=== PATIENT | male | born 1945 | race Caucasian/White ===

== ENCOUNTER 2016-11-25 09:24 | Inpatient (IN) | payer OTHER ==
[~2016-11-25] VITALS: Ht 175.3 cm; Wt 98.2 kg
[2016-11-25] VITALS (9 sets, daily range): BP systolic 103–121; BP diastolic 40–69
[~2016-11-25 09:24] MED LIST: ALPRAZOLAM0.25 M2 PO; AMLODIPINE BESYL5 MG PO; APRESOLINE25 MG PO; ASPIR 8181 M1 PO; ATENOLOL100 MG PO; Ascorbic Acid,Ester- PO; Aspirin E.C. PO; BENAZEPRIL-HCT1 EAC5 PO; CITRATE OF MAG296 ML PO; CLONIDINE HCL0.2 MG PO; COLCRYS0.6 MG PO; COUMADIN3 MG PO; COUMADIN5 MG PO; COUMADIN6 MG PO; Catapres-TTS 2 TD; Colace PO; Coumadin,Jantoven PO; DAILY VITAMIN1 EAC4 PO; DIGOXIN250 MCG; DIOVAN160 MG PO; DOCUSATE SODIU100 MG PO; DOXAZOSIN MESYLA4 MG PO; FERREX 150150 MG PO; FERROUS SULFAT325 MG PO; FUROSEMIDE40 MG PO; HYDRALAZINE HCL25 MG PO; HYDRALAZINE HCL50 MG PO; HYDROCODON-ACE1 EAC7 PO; K-DUR20 MEQ PO; LISINOPRIL-HCT1 EAC3 PO; LISINOPRIL-HCT1 EACH PO; LO-DOSE ASPIRIN81 M2 PO; LOTENSIN HCT1 TABLE1 PO; LOW DOSE ASPIRI81 M1 PO; Lanoxin,Digitek PO; Lasix PO; MEN'S MULTI-VI1 EACH PO; NITROSTAT0.3 MG SL; Niferex-150,Ferrex 1 PO; Norvasc PO; ONDANSETRON HCL4 MG PO; PANTOPRAZOLE SO40 MG PO; PERCOCET 5/31 TABLET PO; POTASSIUM CHLO20 ME2 PO; PRAVASTATIN SOD80 MG PO; PROAIR HFA8.5 GM IH; PROTONIX40 MG PO; Pravachol PO; Protonix PO; Proventil,Ventolin H IH; SPECTRAVITE SE1 EACH PO; STOOL SOFTENER100 MG PO; THERAGRAN1 TABLET PO; TRAMADOL HCL50 MG PO; TYLENOL EXTRA500 MG PO; Tenormin PO; Tylenol Regular Stre PO; VALSARTAN-HCTZ1 EAC3 PO; VENTOLIN HFA18 GM IH; VISINE ADVANCED15 ML BOTH EYES; VISINE TEARS DR30 ML BOTH EYES; VITAMIN C500 M1 PO; WARFARIN SODIUM1 MG PO; WARFARIN SODIUM6 MG PO; Xanax PO; ZOFRAN4 MG PO; oxyCODONE PO
[2016-11-25 09:46] LABS: CREATININE 1.4 mg/dL (0.6-1.3); POTASSIUM 3.7 mEq/L (3.7-5.4)
[2016-11-25 09:47] LABS: BASE EXCESS -2.2 mEq/L (-3 to +3); CARBOXY HGB 1.7 % (0-5); METHEMOGLOBIN 0.4 % (0-1.5)
[2016-11-25 09:48] LABS: BICARBONATE 30.1 mEq/L (22-26); DEVICE 840; FI02 100 %; MECHANICAL RATE 14 resp/min; MODE AC; PCO2 104 mm Hg (35-45); PEEP 5 CM/H20; PO2 98 mm Hg (80-100); SITE RR; TIDAL VOLUME 500 ML; pH 7.07 (7.35-7.45)
[2016-11-25 09:49] LABS: COMMENTS - BLOOD GASES CRITICAL
[2016-11-25 09:50] LABS: BASOPHIL COUNT 0.1 K/uL (0-0.1); EOSINOPHIL (%) 3.2 % (0-5); EOSINOPHIL COUNT 0.5 K/uL (0-0.3); IMMATURE GRANULOCYTE (%) 0.7 % (0.0-0.7); IMMATURE GRANULOCYTE COUNT 0.1 K/uL; INSTRUMENT ABS NEUTROPHIL CT 9.1 K/uL; LYMPHOCYTE COUNT 3.9 K/uL (1.0-2.8); MCH 25.3 PG (29.0-34.0); MCHC 28.8 G/DL (30.0-36.0); MCV 87.6 FL (86-99); MEAN PLAT.VOLUME 10.9 uM^3 (9.0-12.4); MONOCYTE (%) 7.5 % (3-12); MONOCYTE COUNT 1.1 K/uL (0-0.8); NEUTROPHIL (%) 61.8 % (45-76); NEUTROPHIL COUNT 9.1 K/uL (1.8-6.4); PLATELET COUNT 223 K/uL (156-360); RBC DIS.WIDTH-CV 17.5 % (11.8-14.6); RBC DIS.WIDTH-SD 56.2 % (39-53); RED BLOOD COUNT 4.91 M/uL (4.00-5.50); WHITE BLOOD COUNT 14.7 K/uL (4.1-10.2)
[2016-11-25 10:00] LABS: CHLORIDE 100 mEq/L (99-109); POTASSIUM 3.9 mEq/L (3.7-5.4); SODIUM 140 mEq/L (136-147)
[2016-11-25 10:03] LABS: GLUCOSE 286 mg/dL (70-99)
[2016-11-25 10:04] LABS: ANION GAP 20 MEQ/L (2-14); TOTAL BILIRUBIN 0.8 mg/dL (0.0-1.0)
[2016-11-25 10:06] LABS: ALKALINE PHOSPHATASE 98 IU/L (3-129); GFR ESTIMATE (CALCULATED) 45 mL/min/
[2016-11-25 10:07] LABS: UREA NITROGEN (BUN) 26 mg/dL (9-23)
[2016-11-25 10:11] LABS: TROP-I INTERPRETATION NEGATIVE; TROPONIN-I 0.05 ng/mL (0.0-0.30)
[2016-11-25 10:53] LABS: INTER. NORMALIZED RATIO 2.2; PROTHROMBIN TIME 23.4 (9.2-11.2)
[2016-11-25 11:25] LABS: BASE EXCESS 3.6 mEq/L (-3 to +3); BICARBONATE 33.1 mEq/L (22-26); CARBOXY HGB 1.9 % (0-5); METHEMOGLOBIN 0.6 % (0-1.5); PO2 80 mm Hg (80-100)
[2016-11-25 11:28] LABS: COMMENTS - BLOOD GASES CRITICAL; DEVICE 840; FI02 100 %; MECHANICAL RATE 20 resp/min; MODE AC; PCO2 79 mm Hg (35-45); SITE RR; TOTAL RESP RATE 20 resp/min; pH 7.23 (7.35-7.45)
[2016-11-25 11:29] LABS: PEEP 5 CM/H20; TIDAL VOLUME 500 ML
[2016-11-25] MEDS ORDERED: CLOPIDOGREL75 MG PO (12:10)
[2016-11-25] MEDS ORDERED: CARVEDILOL3.125 MG PO (12:10)
[2016-11-25 15:43] LABS: METH RESISTANT S AUREUS PCR NEGATIVE (NEGATIVE)
[2016-11-25 15:52] LABS: PROBE CHECK PASS; SPECIMEN PROCESSING CONTROL PASS
[2016-11-26] VITALS (22 sets, daily range): BP systolic 96–170; BP diastolic 36–90
[2016-11-26 03:14] LABS: BASE EXCESS 10.4 mEq/L (-3 to +3); BICARBONATE 34.3 mEq/L (22-26); CARBOXY HGB 1.6 % (0-5); COMMENTS - BLOOD GASES C+A+; DEVICE VENTILATOR; FI02 70 %; MECHANICAL RATE 20 resp/min; METHEMOGLOBIN 1.2 % (0-1.5); MODE AC; PCO2 42 mm Hg (35-45); PEEP 5 CM/H20; PO2 53 mm Hg (80-100); SITE RR; TIDAL VOLUME 500 ML; TOTAL RESP RATE 20 resp/min; pH 7.52 (7.35-7.45)
[2016-11-26 05:58] LABS: ALKALINE PHOSPHATASE 58 IU/L (3-129); ANION GAP 9 MEQ/L (2-14); CHLORIDE 101 MEQ/L (99-109); GFR ESTIMATE (CALCULATED) 49 mL/min/; SAMPLE HEMOLYSIS CHECK 0; SAMPLE ICTERIC CHECK 0; SAMPLE LIPEMIA CHECK 0; SODIUM 143 MEQ/L (136-147); TOTAL BILIRUBIN 1.1 MG/DL (0.0-1.0); UREA NITROGEN (BUN) 27 mg/dL (9-23)
[2016-11-26 05:59] LABS: GLUCOSE 119 mg/dL (70-99)
[2016-11-26 06:23] LABS: HEMATOCRIT 30.9 % (38.0-50.0); MCH 25.2 PG (29.0-34.0); MCHC 30.7 G/DL (30.0-36.0); RBC DIS.WIDTH-CV 17.8 % (11.8-14.6); RBC DIS.WIDTH-SD 54.1 % (39-53)
[2016-11-26 06:30] LABS: RED BLOOD COUNT 3.77 M/uL (4.00-5.50); WHITE BLOOD COUNT 9.9 K/uL (4.1-10.2)
[2016-11-26 06:51] LABS: MEAN PLAT.VOLUME 11.6 uM^3 (9.0-12.4); PLAT.SUFFICIENCY DECREASED
[2016-11-26 07:00] LABS: PLATELET COUNT 124 K/uL (156-360)
[2016-11-26 08:42] LABS: MAGNESIUM 1.8 mg/dl (1.3-2.7)
[2016-11-26 10:37] LABS: INTER. NORMALIZED RATIO 2.5; PROTHROMBIN TIME 26.3 (9.2-11.2)
[2016-11-27] VITALS (23 sets, daily range): BP systolic 136–169; BP diastolic 50–75
[2016-11-27 02:11] LABS: ADD MIUA? YES; BILIRUBIN NEGATIVE; BLOOD LARGE; COLOR YELLOW ((YELLOW)); GLUCOSE (STRIP) NEGATIVE; KETONES NEGATIVE; LEUKOCYTES NEGATIVE; NITRITE NEGATIVE; PROTEIN (STRIP) 100; SPECIFIC GRAVITY 1.011 (1.000-1.030); UROBILINOGEN 0.2 MG/DL (0.2-1.0)
[2016-11-27 02:22] LABS: BACTERIA NONE SEEN /HPF; EPITHELIAL CELLS RARE /HPF; MUCUS TRACE /LPF; RED BLOOD CELLS TNTC /HPF (0-5); UCUL ADDED? NO; WHITE BLOOD CELLS 0-5 /HPF (0-5)
[2016-11-27 06:23] LABS: EOSINOPHIL (%) 0.4 % (0-5); EOSINOPHIL COUNT 0.1 K/uL (0-0.3); HEMATOCRIT 33.7 % (38.0-50.0); IMMATURE GRANULOCYTE (%) 0.4 % (0.0-0.7); IMMATURE GRANULOCYTE COUNT 0.1 K/uL; INSTRUMENT ABS NEUTROPHIL CT 11.7 K/uL; LYMPHOCYTE COUNT 0.9 K/uL (1.0-2.8); MCH 25.3 PG (29.0-34.0); MCHC 30.6 G/DL (30.0-36.0); MCV 82.8 FL (86-99); MEAN PLAT.VOLUME 11.2 uM^3 (9.0-12.4); MONOCYTE (%) 8.4 % (3-12); MONOCYTE COUNT 1.2 K/uL (0-0.8); NEUTROPHIL (%) 84.5 % (45-76); NEUTROPHIL COUNT 11.7 K/uL (1.8-6.4); PLATELET COUNT 120 K/uL (156-360); RBC DIS.WIDTH-CV 18.1 % (11.8-14.6); RBC DIS.WIDTH-SD 54.4 % (39-53); RED BLOOD COUNT 4.07 M/uL (4.00-5.50); WHITE BLOOD COUNT 13.9 K/uL (4.1-10.2)
[2016-11-27 06:38] LABS: INTER. NORMALIZED RATIO 1.5; PROTHROMBIN TIME 15.9 (9.2-11.2)
[2016-11-27 06:40] LABS: ANION GAP 11 MEQ/L (2-14); CHLORIDE 101 MEQ/L (99-109); GFR ESTIMATE (CALCULATED) 49 mL/min/; POTASSIUM 3.4 MEQ/L (3.7-5.4); SAMPLE HEMOLYSIS CHECK 0; SAMPLE ICTERIC CHECK 0; SAMPLE LIPEMIA CHECK 0; SODIUM 144 MEQ/L (136-147); UREA NITROGEN (BUN) 24 mg/dL (9-23)
[2016-11-27 06:42] LABS: GLUCOSE 183 mg/dL (70-99); MAGNESIUM 2.1 mg/dl (1.3-2.7)
[2016-11-28] VITALS (18 sets, daily range): BP systolic 123–169; BP diastolic 51–77
[2016-11-28 05:44] LABS: EOSINOPHIL (%) 0.5 % (0-5); EOSINOPHIL COUNT 0.1 K/uL (0-0.3); HEMATOCRIT 32.2 % (38.0-50.0); IMMATURE GRANULOCYTE (%) 0.5 % (0.0-0.7); IMMATURE GRANULOCYTE COUNT 0.1 K/uL; INSTRUMENT ABS NEUTROPHIL CT 11.2 K/uL; LYMPHOCYTE COUNT 0.6 K/uL (1.0-2.8); MCH 25.5 PG (29.0-34.0); MCHC 30.4 G/DL (30.0-36.0); MCV 83.9 FL (86-99); MEAN PLAT.VOLUME 10.7 uM^3 (9.0-12.4); MONOCYTE (%) 7.3 % (3-12); NEUTROPHIL (%) 86.6 % (45-76); NEUTROPHIL COUNT 11.2 K/uL (1.8-6.4); PLATELET COUNT 103 K/uL (156-360); RBC DIS.WIDTH-CV 17.9 % (11.8-14.6); RBC DIS.WIDTH-SD 54.5 % (39-53); RED BLOOD COUNT 3.84 M/uL (4.00-5.50)
[2016-11-28 05:52] LABS: INTER. NORMALIZED RATIO 1.3; PROTHROMBIN TIME 13.8 (9.2-11.2)
[2016-11-28 06:48] LABS: ANION GAP 10 MEQ/L (2-14); CHLORIDE 102 MEQ/L (99-109); GFR ESTIMATE (CALCULATED) 58 mL/min/; GLUCOSE 131 mg/dL (70-99); SODIUM 146 MEQ/L (136-147); UREA NITROGEN (BUN) 24 mg/dL (9-23)
[2016-11-28 06:51] LABS: POTASSIUM 3.2 MEQ/L (3.7-5.4)
[2016-11-28 10:32] LABS: SAMPLE HEMOLYSIS CHECK 0; SAMPLE ICTERIC CHECK 0; SAMPLE LIPEMIA CHECK 0; URIC ACID 5.3 mg/dL (3.1-9.2)
[2016-11-29] VITALS (7 sets, daily range): BP systolic 131–197; BP diastolic 59–83
[2016-11-29 07:29] LABS: EOSINOPHIL (%) 0 % (0-5); HEMATOCRIT 32.5 % (38.0-50.0); IMMATURE GRANULOCYTE (%) 0.5 % (0.0-0.7); IMMATURE GRANULOCYTE COUNT 0.1 K/uL; INSTRUMENT ABS NEUTROPHIL CT 10.8 K/uL; LYMPHOCYTE COUNT 0.4 K/uL (1.0-2.8); MCH 25.1 PG (29.0-34.0); MCHC 30.2 G/DL (30.0-36.0); MCV 83.3 FL (86-99); MEAN PLAT.VOLUME 11.1 uM^3 (9.0-12.4); MONOCYTE (%) 3.3 % (3-12); MONOCYTE COUNT 0.4 K/uL (0-0.8); NEUTROPHIL (%) 92.9 % (45-76); NEUTROPHIL COUNT 10.8 K/uL (1.8-6.4); RBC DIS.WIDTH-CV 17.3 % (11.8-14.6); RBC DIS.WIDTH-SD 53.1 % (39-53); WHITE BLOOD COUNT 11.7 K/uL (4.1-10.2)
[2016-11-29 07:35] LABS: INTER. NORMALIZED RATIO 1.2; PROTHROMBIN TIME 12.5 (9.2-11.2)
[2016-11-29 07:37] LABS: ANION GAP 9 MEQ/L (2-14); CHLORIDE 102 MEQ/L (99-109); GFR ESTIMATE (CALCULATED) 53 mL/min/; GLUCOSE 170 mg/dL (70-99); MAGNESIUM 2.2 mg/dl (1.3-2.7); POTASSIUM 3.1 MEQ/L (3.7-5.4); SAMPLE HEMOLYSIS CHECK 0; SAMPLE ICTERIC CHECK 0; SAMPLE LIPEMIA CHECK 0; SODIUM 146 MEQ/L (136-147); UREA NITROGEN (BUN) 35 mg/dL (9-23)
[2016-11-29 07:43] LABS: PLATELET COUNT 140 K/uL (156-360)
[2016-11-30 04:18] VITALS: BP 156/82
[2016-11-30 05:57] LABS: EOSINOPHIL (%) 0 % (0-5); HEMATOCRIT 32.4 % (38.0-50.0); IMMATURE GRANULOCYTE (%) 0.7 % (0.0-0.7); IMMATURE GRANULOCYTE COUNT 0.1 K/uL; LYMPHOCYTE COUNT 0.3 K/uL (1.0-2.8); MCH 24.7 PG (29.0-34.0); MCHC 29.6 G/DL (30.0-36.0); MCV 83.3 FL (86-99); MEAN PLAT.VOLUME 11.4 uM^3 (9.0-12.4); MONOCYTE (%) 3.7 % (3-12); MONOCYTE COUNT 0.4 K/uL (0-0.8); NEUTROPHIL (%) 92.4 % (45-76); PLATELET COUNT 164 K/uL (156-360); RBC DIS.WIDTH-CV 17.2 % (11.8-14.6); RBC DIS.WIDTH-SD 52.7 % (39-53); RED BLOOD COUNT 3.89 M/uL (4.00-5.50); WHITE BLOOD COUNT 10.9 K/uL (4.1-10.2)
[2016-11-30 06:20] LABS: ANION GAP 10 MEQ/L (2-14); CHLORIDE 101 MEQ/L (99-109); GFR ESTIMATE (CALCULATED) > 59 mL/min/; GLUCOSE 204 mg/dL (70-99); MAGNESIUM 2.3 mg/dl (1.3-2.7); POTASSIUM 3.2 MEQ/L (3.7-5.4); SAMPLE HEMOLYSIS CHECK 0; SAMPLE ICTERIC CHECK 0; SAMPLE LIPEMIA CHECK 0; SODIUM 144 MEQ/L (136-147); UREA NITROGEN (BUN) 41 mg/dL (9-23)
[2016-11-30 06:46] LABS: INTER. NORMALIZED RATIO 1.3; PROTHROMBIN TIME 13.4 (9.2-11.2)
[2016-11-30 07:48] VITALS: BP 140/83
[2016-11-30 11:29] VITALS: BP 141/64
[2016-11-30 16:02] VITALS: BP 174/73
[2016-11-30 19:00] VITALS: BP 134/79
[2016-11-30 23:15] VITALS: BP 133/86
[2016-12-01 03:25] VITALS: BP 154/70
[2016-12-01 07:03] LABS: EOSINOPHIL (%) 0.5 % (0-5); EOSINOPHIL COUNT 0.1 K/uL (0-0.3); HEMATOCRIT 31.8 % (38.0-50.0); IMMATURE GRANULOCYTE (%) 0.7 % (0.0-0.7); IMMATURE GRANULOCYTE COUNT 0.1 K/uL; INSTRUMENT ABS NEUTROPHIL CT 8.4 K/uL; LYMPHOCYTE COUNT 0.8 K/uL (1.0-2.8); MCH 24.6 PG (29.0-34.0); MCHC 29.2 G/DL (30.0-36.0); MCV 84.1 FL (86-99); MEAN PLAT.VOLUME 11.5 uM^3 (9.0-12.4); MONOCYTE (%) 7.9 % (3-12); MONOCYTE COUNT 0.8 K/uL (0-0.8); NEUTROPHIL (%) 82.9 % (45-76); NEUTROPHIL COUNT 8.4 K/uL (1.8-6.4); PLATELET COUNT 166 K/uL (156-360); RBC DIS.WIDTH-CV 17.2 % (11.8-14.6); RBC DIS.WIDTH-SD 52.5 % (39-53); RED BLOOD COUNT 3.78 M/uL (4.00-5.50); WHITE BLOOD COUNT 10.1 K/uL (4.1-10.2)
[2016-12-01 07:23] LABS: INTER. NORMALIZED RATIO 1.3; PROTHROMBIN TIME 13.2 (9.2-11.2)
[2016-12-01 07:38] LABS: ANION GAP 10 MEQ/L (2-14); CHLORIDE 101 MEQ/L (99-109); GFR ESTIMATE (CALCULATED) 58 mL/min/; MAGNESIUM 2.1 mg/dl (1.3-2.7); POTASSIUM 3.5 MEQ/L (3.7-5.4); SAMPLE HEMOLYSIS CHECK 0; SAMPLE ICTERIC CHECK 0; SAMPLE LIPEMIA CHECK 0; SODIUM 145 MEQ/L (136-147); UREA NITROGEN (BUN) 43 mg/dL (9-23)
[2016-12-01 07:48] LABS: GLUCOSE 112 mg/dL (70-99)
[2016-12-01 08:25] VITALS: BP 171/67
[2016-12-01 12:14] VITALS: BP 145/66
[2016-12-01 16:45] VITALS: BP 129/87
[2016-12-01 19:00] VITALS: BP 136/67
[2016-12-01 23:00] VITALS: BP 155/73
[2016-12-02 03:00] VITALS: BP 135/76
[2016-12-02 06:37] LABS: EOSINOPHIL (%) 3.9 % (0-5); EOSINOPHIL COUNT 0.4 K/uL (0-0.3); IMMATURE GRANULOCYTE COUNT 0.3 K/uL; INSTRUMENT ABS NEUTROPHIL CT 7.6 K/uL; LYMPHOCYTE COUNT 0.7 K/uL (1.0-2.8); MCH 25.1 PG (29.0-34.0); MCHC 30.3 G/DL (30.0-36.0); MCV 82.9 FL (86-99); MEAN PLAT.VOLUME 11.2 uM^3 (9.0-12.4); MONOCYTE (%) 7.4 % (3-12); MONOCYTE COUNT 0.7 K/uL (0-0.8); NEUTROPHIL COUNT 7.6 K/uL (1.8-6.4); NRBC (%) 0.2 /100 WBC (0-0); PLATELET COUNT 161 K/uL (156-360); RBC DIS.WIDTH-CV 17.1 % (11.8-14.6); RED BLOOD COUNT 3.62 M/uL (4.00-5.50); WHITE BLOOD COUNT 9.7 K/uL (4.1-10.2)
[2016-12-02 06:56] LABS: INTER. NORMALIZED RATIO 1.4; PROTHROMBIN TIME 14.1 (9.2-11.2)
[2016-12-02 07:03] LABS: ANION GAP 10 MEQ/L (2-14); CHLORIDE 98 MEQ/L (99-109); GFR ESTIMATE (CALCULATED) > 59 mL/min/; GLUCOSE 126 mg/dL (70-99); MAGNESIUM 2.1 mg/dl (1.3-2.7); POTASSIUM 3.4 MEQ/L (3.7-5.4); SAMPLE HEMOLYSIS CHECK 0; SAMPLE ICTERIC CHECK 0; SAMPLE LIPEMIA CHECK 0; SODIUM 144 MEQ/L (136-147); UREA NITROGEN (BUN) 37 mg/dL (9-23)
[2016-12-02 07:39] VITALS: BP 142/70
[2016-12-02 12:05] VITALS: BP 151/63
[2016-12-02 16:45] VITALS: BP 150/63
[2016-12-02 19:41] VITALS: BP 145/67
[2016-12-02 22:36] VITALS: BP 146/68
[2016-12-03 04:18] VITALS: BP 142/73
[2016-12-03 05:58] LABS: EOSINOPHIL (%) 0 % (0-5); HEMATOCRIT 30.7 % (38.0-50.0); IMMATURE GRANULOCYTE (%) 4.5 % (0.0-0.7); IMMATURE GRANULOCYTE COUNT 0.5 K/uL; INSTRUMENT ABS NEUTROPHIL CT 9.8 K/uL; LYMPHOCYTE COUNT 0.4 K/uL (1.0-2.8); MCH 24.6 PG (29.0-34.0); MCHC 29.6 G/DL (30.0-36.0); MEAN PLAT.VOLUME 11.4 uM^3 (9.0-12.4); MONOCYTE (%) 2.1 % (3-12); MONOCYTE COUNT 0.2 K/uL (0-0.8); NEUTROPHIL (%) 89.4 % (45-76); NEUTROPHIL COUNT 9.8 K/uL (1.8-6.4); PLATELET COUNT 196 K/uL (156-360); RBC DIS.WIDTH-CV 17.1 % (11.8-14.6); RBC DIS.WIDTH-SD 51.9 % (39-53)
[2016-12-03 06:15] LABS: INTER. NORMALIZED RATIO 1.4; PROTHROMBIN TIME 14.2 (9.2-11.2)
[2016-12-03 06:23] LABS: ANION GAP 7 MEQ/L (2-14); CHLORIDE 99 MEQ/L (99-109); GFR ESTIMATE (CALCULATED) > 59 mL/min/; MAGNESIUM 2.4 mg/dl (1.3-2.7); SAMPLE HEMOLYSIS CHECK 0; SAMPLE ICTERIC CHECK 0; SAMPLE LIPEMIA CHECK 0; SODIUM 142 MEQ/L (136-147); UREA NITROGEN (BUN) 30 mg/dL (9-23)
[2016-12-03 06:25] LABS: GLUCOSE 221 mg/dL (70-99)
[2016-12-03 08:41] VITALS: BP 167/86
[2016-12-03 12:05] VITALS: BP 144/67
[2016-12-03 15:18] VITALS: BP 150/74
[2016-12-03 20:11] VITALS: BP 138/81
[2016-12-03 23:36] VITALS: BP 140/62
[2016-12-04 04:36] VITALS: BP 136/72
[2016-12-04 06:28] LABS: EOSINOPHIL (%) 0 % (0-5); HEMATOCRIT 30.5 % (38.0-50.0); IMMATURE GRANULOCYTE (%) 2.3 % (0.0-0.7); IMMATURE GRANULOCYTE COUNT 0.4 K/uL; INSTRUMENT ABS NEUTROPHIL CT 13.6 K/uL; LYMPHOCYTE COUNT 0.6 K/uL (1.0-2.8); MCH 24.7 PG (29.0-34.0); MCHC 29.8 G/DL (30.0-36.0); MCV 82.9 FL (86-99); MEAN PLAT.VOLUME 10.9 uM^3 (9.0-12.4); MONOCYTE (%) 3.2 % (3-12); MONOCYTE COUNT 0.5 K/uL (0-0.8); NEUTROPHIL (%) 90.4 % (45-76); NEUTROPHIL COUNT 13.6 K/uL (1.8-6.4); PLATELET COUNT 238 K/uL (156-360); RBC DIS.WIDTH-CV 17.3 % (11.8-14.6); RBC DIS.WIDTH-SD 52.1 % (39-53); RED BLOOD COUNT 3.68 M/uL (4.00-5.50)
[2016-12-04 06:41] LABS: INTER. NORMALIZED RATIO 1.2; PROTHROMBIN TIME 12.6 (9.2-11.2); WHITE BLOOD COUNT 15.1 K/uL (4.1-10.2)
[2016-12-04 06:45] LABS: ANION GAP 11 MEQ/L (2-14); CHLORIDE 98 MEQ/L (99-109); GFR ESTIMATE (CALCULATED) > 59 mL/min/; GLUCOSE 188 mg/dL (70-99); MAGNESIUM 2.5 mg/dl (1.3-2.7); POTASSIUM 4.2 MEQ/L (3.7-5.4); SAMPLE HEMOLYSIS CHECK 0; SAMPLE ICTERIC CHECK 0; SAMPLE LIPEMIA CHECK 0; SODIUM 141 MEQ/L (136-147); UREA NITROGEN (BUN) 36 mg/dL (9-23)
[2016-12-04 09:00] VITALS: BP 141/82
[2016-12-04 13:18] VITALS: BP 124/71
[2016-12-04 16:17] VITALS: BP 150/79
[2016-12-04 16:22] VITALS: BP 143/67
[2016-12-04 20:33] VITALS: BP 144/75
[2016-12-05 00:40] VITALS: BP 147/71
[2016-12-05 05:13] VITALS: BP 152/61
[2016-12-05 06:26] LABS: EOSINOPHIL (%) 0 % (0-5); IMMATURE GRANULOCYTE (%) 2.5 % (0.0-0.7); IMMATURE GRANULOCYTE COUNT 0.4 K/uL; INSTRUMENT ABS NEUTROPHIL CT 15.3 K/uL; LYMPHOCYTE COUNT 0.5 K/uL (1.0-2.8); MCH 24.7 PG (29.0-34.0); MCHC 29.7 G/DL (30.0-36.0); MCV 83.3 FL (86-99); MEAN PLAT.VOLUME 11.1 uM^3 (9.0-12.4); MONOCYTE (%) 2.4 % (3-12); MONOCYTE COUNT 0.4 K/uL (0-0.8); NEUTROPHIL (%) 92.2 % (45-76); NEUTROPHIL COUNT 15.3 K/uL (1.8-6.4); PLATELET COUNT 251 K/uL (156-360); RBC DIS.WIDTH-CV 17.8 % (11.8-14.6); RBC DIS.WIDTH-SD 53.7 % (39-53); RED BLOOD COUNT 3.72 M/uL (4.00-5.50); WHITE BLOOD COUNT 16.6 K/uL (4.1-10.2)
[2016-12-05 06:29] LABS: INTER. NORMALIZED RATIO 1.2
[2016-12-05 06:50] LABS: ANION GAP 11 MEQ/L (2-14); CHLORIDE 100 MEQ/L (99-109); GFR ESTIMATE (CALCULATED) > 59 mL/min/; GLUCOSE 201 mg/dL (70-99); MAGNESIUM 2.5 mg/dl (1.3-2.7); POTASSIUM 4.4 MEQ/L (3.7-5.4); SAMPLE HEMOLYSIS CHECK 0; SAMPLE ICTERIC CHECK 0; SAMPLE LIPEMIA CHECK 0; SODIUM 141 MEQ/L (136-147); UREA NITROGEN (BUN) 41 mg/dL (9-23)
[2016-12-05 07:36] VITALS: BP 139/85
[2016-12-05 11:49] VITALS: BP 174/70
[2016-12-05 15:57] VITALS: BP 164/74
[2016-12-05] MEDS ORDERED: DUONEB 2.5-0.5 M3 ML AEROSOL (18:37)
[2016-12-05] MEDS ORDERED: LEVOFLOXACIN750 MG PO (18:37)
[2016-12-05] MEDS ORDERED: SPIRIVA RESPIMAT4 GM IH (18:38)
[2016-12-05] MEDS ORDERED: Tears Naturale II,Ar BOTH EYES (18:41)
[2016-12-05] MEDS ORDERED: DOCUSATE SODIU100 MG PO (18:41)
[2016-12-05] MEDS ORDERED: ADVAIR HFA120 INHALA IH (18:41)
[2016-12-05] MEDS ORDERED: PREDNISONE20 MG PO (18:42)
[2016-12-05 19:19] VITALS: BP 126/78
[2016-12-05] MEDS ORDERED: CARVEDILOL3.125 MG PO (20:00)
[2016-12-06] VITALS: BP 126/63
[2016-12-06 04:14] VITALS: BP 154/89
[2016-12-06 06:27] LABS: EOSINOPHIL (%) 0.1 % (0-5); HEMATOCRIT 29.5 % (38.0-50.0); IMMATURE GRANULOCYTE (%) 4.3 % (0.0-0.7); IMMATURE GRANULOCYTE COUNT 0.6 K/uL; INSTRUMENT ABS NEUTROPHIL CT 11.4 K/uL; LYMPHOCYTE COUNT 0.7 K/uL (1.0-2.8); MCHC 29.5 G/DL (30.0-36.0); MCV 84.8 FL (86-99); MEAN PLAT.VOLUME 11.4 uM^3 (9.0-12.4); MONOCYTE (%) 7.3 % (3-12); NEUTROPHIL COUNT 11.4 K/uL (1.8-6.4); NRBC (%) 0.1 /100 WBC (0-0); PLATELET COUNT 203 K/uL (156-360); RBC DIS.WIDTH-CV 17.9 % (11.8-14.6); RBC DIS.WIDTH-SD 54.2 % (39-53); RED BLOOD COUNT 3.48 M/uL (4.00-5.50); WHITE BLOOD COUNT 13.8 K/uL (4.1-10.2)
[2016-12-06 06:53] LABS: INTER. NORMALIZED RATIO 1.2; PROTHROMBIN TIME 12.3 (9.2-11.2)
[2016-12-06 06:59] LABS: ANION GAP 9 MEQ/L (2-14); CHLORIDE 102 MEQ/L (99-109); GFR ESTIMATE (CALCULATED) > 59 mL/min/; MAGNESIUM 2.4 mg/dl (1.3-2.7); SAMPLE HEMOLYSIS CHECK 0; SAMPLE ICTERIC CHECK 0; SAMPLE LIPEMIA CHECK 0; SODIUM 142 MEQ/L (136-147); UREA NITROGEN (BUN) 42 mg/dL (9-23)
[2016-12-06 07:10] LABS: GLUCOSE 119 mg/dL (70-99)
[2016-12-06 09:00] VITALS: BP 130/71
[2016-12-06 12:00] VITALS: BP 124/76
== END 2016-12-06 14:02 | DRG 208 ==
LOC: EME → EDBD 09:24 → EDOF 11:31 → 4WEST 11:31 → 4EAST 11:31 → 4WEST 13:55 → 4EAST 11-28 21:53
PROVIDERS: Emergency Medicine; Family Medicine Sports Medicine; Internal Medicine Critical Care Medicine; Internal Medicine Nephrology; Internal Medicine Pulmonary Disease
DX: J96.01 Acute respiratory failure with hypoxia (principal); I25.10 Atherosclerotic heart disease of native coronary artery without angina pectoris; Z95.1 Presence of aortocoronary bypass graft; I48.2 Chronic atrial fibrillation; Z79.01 Long term (current) use of anticoagulants; I50.23 Acute on chronic systolic (congestive) heart failure; Z87.891 Personal history of nicotine dependence; J44.0 Chronic obstructive pulmonary disease with (acute) lower respiratory infection; J44.1 Chronic obstructive pulmonary disease with (acute) exacerbation; J15.212 Pneumonia due to Methicillin resistant Staphylococcus aureus; Z95.2 Presence of prosthetic heart valve; E78.5 Hyperlipidemia, unspecified; E83.42 Hypomagnesemia; E87.6 Hypokalemia; D64.9 Anemia, unspecified; M10.9 Gout, unspecified; E87.2 Acidosis; I13.0 Hypertensive heart and chronic kidney disease with heart failure and stage 1 through stage 4 chronic kidney disease, or unspecified chronic kidney disease; N18.9 Chronic kidney disease, unspecified; K21.9 Gastro-esophageal reflux disease without esophagitis
CPT/HCPCS: 36600; 71010; 71020; 71275; 80047; 80048; 80053; 80200; 80202; 81003; 82803; 83605; 83735; 83880; 84100; 84145 90; 84484; 84550; 85025; 85027; 85610; 86900; 86901; 87040; 87070; 87077; 87086; 87147; 87186; 87205; 87641; 93005; 94002; 94003; 94640; 94640 76; 94760; 94799; 97530 GO; 99202; 99281; 99285; C9113; J0456; J0696; J1650; J1940; J2060; J2543; J2704; J2920; J3010; J3260; J3370; J3475; J3480; J7050; J7512

== ENCOUNTER 2017-03-08 09:51 | Emergency (ER) | payer OTHER ==
[~2017-03-08] VITALS: Ht 175.3 cm
[~2017-03-08 09:51] MED LIST changes: +ADVAIR HFA120 INHALA IH; +CARVEDILOL3.125 MG PO; +CLOPIDOGREL75 MG PO; +DUONEB 2.5-0.5 M3 ML AEROSOL; +LEVOFLOXACIN750 MG PO; +PREDNISONE20 MG PO; +SPIRIVA RESPIMAT4 GM IH; +Tears Naturale II,Ar BOTH EYES
[2017-03-08 11:02] LABS: HEMATOCRIT 35.9 % (38.0-50.0); MCH 24.6 PG (29.0-34.0); MCHC 30.9 G/DL (30.0-36.0); MCV 79.4 FL (86-99); MEAN PLAT.VOLUME 10.6 uM^3 (9.0-12.4); PLATELET COUNT 195 K/uL (156-360); RBC DIS.WIDTH-SD 46.1 % (39-53); RED BLOOD COUNT 4.52 M/uL (4.00-5.50); WHITE BLOOD COUNT 11.8 K/uL (4.1-10.2)
[2017-03-08 11:17] LABS: CHLORIDE 100 mEq/L (99-109); POTASSIUM 3.6 mEq/L (3.7-5.4); SODIUM 139 mEq/L (136-147)
[2017-03-08 11:18] LABS: GLUCOSE 169 mg/dL (70-99)
[2017-03-08 11:20] LABS: ANION GAP 12 MEQ/L (2-14)
[2017-03-08 11:22] LABS: GFR ESTIMATE (CALCULATED) > 59 mL/min/
[2017-03-08 11:23] LABS: UREA NITROGEN (BUN) 24 mg/dL (9-23)
[2017-03-08 11:30] LABS: ERTH.SED.RATE 26 MM/HR (0-20)
[2017-03-08] MEDS ORDERED: PERCOCET 5/31 TABLET PO (11:42)
[2017-03-08] MEDS ORDERED: VALIUM5 MG PO (11:42)
[2017-03-08 13:04] VITALS: BP 163/73
== END 2017-03-08 13:05 | disposition home or self-care (01) ==
LOC: EME → EDBD 09:51 → EME 09:51
PROVIDERS: Emergency Medicine
DX: M75.101 Unspecified rotator cuff tear or rupture of right shoulder, not specified as traumatic (principal); S46.911A Strain of unspecified muscle, fascia and tendon at shoulder and upper arm level, right arm, initial encounter; X58.XXXA Exposure to other specified factors, initial encounter; I25.2 Old myocardial infarction; I10 Essential (primary) hypertension; J44.9 Chronic obstructive pulmonary disease, unspecified; Z95.1 Presence of aortocoronary bypass graft; Z79.01 Long term (current) use of anticoagulants; Z87.891 Personal history of nicotine dependence; Z85.828 Personal history of other malignant neoplasm of skin
CPT/HCPCS: 72040; 73030; 73060; 80048; 85027; 85651; 99281; 99285

== ENCOUNTER 2017-12-04 20:57 | Inpatient (IN) | payer OTHER ==
[~2017-12-04] VITALS: Ht 165.1 cm; Wt 97.3 kg
[~2017-12-04 20:57] MED LIST changes: +COUMADIN2.5 MG PO; +LISINOPRIL10 MG PO; +POLYETHYLENE GL17 GM PO; +ULORIC40 MG PO; +VALIUM5 MG PO; +WARFARIN SODIUM5 MG PO
[2017-12-04 21:26] LABS: BASOPHIL (%) 0.4 % (0-1); BASOPHIL COUNT 0.1 K/uL (0-0.1); EOSINOPHIL (%) 1.7 % (0-5); EOSINOPHIL COUNT 0.3 K/uL (0-0.3); HEMATOCRIT 37.1 % (38.0-50.0); IMMATURE GRANULOCYTE (%) 0.5 % (0.0-0.7); LYMPHOCYTE (%) 5.6 % (15-42); LYMPHOCYTE COUNT 0.9 K/uL (1.0-2.8); MCH 25.3 PG (29.0-34.0); MCHC 29.6 G/DL (30.0-36.0); MCV 85.5 FL (86-99); MONOCYTE (%) 4.5 % (3-12); MONOCYTE COUNT 0.7 K/uL (0-0.8); NEUTROPHIL (%) 87.3 % (45-76); NEUTROPHIL COUNT 13.9 K/uL (1.8-6.4); RBC DIS.WIDTH-CV 18.6 % (11.8-14.6); RBC DIS.WIDTH-SD 55.9 % (39-53); WHITE BLOOD COUNT 15.9 K/uL (4.1-10.2)
[2017-12-04 21:33] LABS: BASE EXCESS 6.8 mEq/L (-3 to +3); BICARBONATE 31.9 mEq/L (22-26); METHEMOGLOBIN 0.7 % (0-1.5); pH 7.44 (7.35-7.45)
[2017-12-04 21:33] LABS: PLATELET COUNT 169 K/uL (156-360); RED BLOOD COUNT 4.34 M/uL (4.00-5.50)
[2017-12-04 21:34] LABS: INTER. NORMALIZED RATIO 2.5
[2017-12-04 21:34] LABS: COMMENTS - BLOOD GASES C+; DEVICE NCHH; FI02 100 %; O2 FLOW 40 L/MIN; PCO2 47 mm Hg (35-45); PO2 76 mm Hg (80-100); SITE LR; TOTAL RESP RATE 13 resp/min
[2017-12-04 21:36] LABS: PTT 41.4 SEC (25-37)
[2017-12-04 21:37] LABS: ALBUMIN 3.8 g/dL (3.2-4.8); CHLORIDE 104 mEq/L (99-109); POTASSIUM 4.1 mEq/L (3.7-5.4); SODIUM 144 mEq/L (136-147)
[2017-12-04 21:40] LABS: TOTAL PROTEIN 6.4 g/dL (6.4-8.3)
[2017-12-04 21:42] LABS: TOTAL BILIRUBIN 1.5 mg/dL (0.0-1.0)
[2017-12-04 21:43] LABS: ALKALINE PHOSPHATASE 154 IU/L (3-129); CREATININE 1.2 mg/dL (0.6-1.3); GFR ESTIMATE (CALCULATED) > 59 mL/min/ (58.99-99999); GLUCOSE 172 mg/dL (70-99)
[2017-12-04 21:44] LABS: UREA NITROGEN (BUN) 18 mg/dL (9-23)
[2017-12-04 21:45] LABS: AST (GOT) 25 IU/L (2-34)
[2017-12-04 21:46] LABS: ALT (GPT) 18 IU/L (3-49)
[2017-12-04 21:47] LABS: TROP-I INTERPRETATION NEGATIVE; TROPONIN-I 0.04 ng/mL (0.0-0.30)
[2017-12-04] MEDS ORDERED: ALLOPURINOL300 MG PO (22:58)
[2017-12-05] VITALS (7 sets, daily range): BP systolic 109–142; BP diastolic 58–94
[2017-12-05] MEDS ORDERED: COUMADIN4 MG PO (00:13)
[2017-12-05] MEDS ORDERED: AMIODARONE HCL200 MG PO (00:13)
[2017-12-05] MEDS ORDERED: FUROSEMIDE20 MG PO (00:14)
[2017-12-05] MEDS ORDERED: DAILY VALUE1 EACH PO (00:14)
[2017-12-05] MEDS ORDERED: COZAAR100 MG PO (00:14)
[2017-12-05] MEDS ORDERED: OMEPRAZOLE40 M1 PO (00:15)
[2017-12-05] MEDS ORDERED: TRAZODONE HCL50 MG PO (00:16)
[2017-12-05] MEDS ORDERED: SENNA8.6 MG PO (00:16)
[2017-12-05] MEDS ORDERED: COREG12.5 M1 PO (00:16)
[2017-12-05] MEDS ORDERED: DULCOLAX10 MG PR (00:18)
[2017-12-05] MEDS ORDERED: TYLENOL REGULA325 MG PO (00:18)
[2017-12-05] MEDS ORDERED: PHILLIPS'400 MG/5 M PO (00:19)
[2017-12-05] MEDS ORDERED: MIRALAX17 GM PO (00:19)
[2017-12-05 09:49] LABS: HEMOGLOBIN A1c (GLYCOHEMOGLOB) 5.7 % (Below 5.7)
[2017-12-05 10:21] LABS: INTER. NORMALIZED RATIO 2.3
[2017-12-05 10:24] LABS: PTT 43.8 SEC (25-37)
[2017-12-05 10:30] LABS: HEMATOCRIT 31.8 % (38.0-50.0); HEMOGLOBIN 9.4 G/DL (12.5-16.6); MCHC 29.6 G/DL (30.0-36.0); MCV 84.6 FL (86-99); RBC DIS.WIDTH-CV 18.6 % (11.8-14.6); RBC DIS.WIDTH-SD 55.4 % (39-53); RED BLOOD COUNT 3.76 M/uL (4.00-5.50); WHITE BLOOD COUNT 9.9 K/uL (4.1-10.2)
[2017-12-05 10:43] LABS: CHLORIDE 106 MEQ/L (99-109); CREATININE 1.1 MG/DL (0.6-1.3); GFR ESTIMATE (CALCULATED) > 59 mL/min/ (58.99-99999); POTASSIUM 3.4 MEQ/L (3.7-5.4); SODIUM 147 MEQ/L (136-147); UREA NITROGEN (BUN) 16 mg/dL (9-23)
[2017-12-05 10:47] LABS: PLAT.SUFFICIENCY DECREASED
[2017-12-05 10:48] LABS: PLATELET COUNT UNABLE TO REPORT K/uL (156-360)
[2017-12-05 10:53] LABS: GLUCOSE 115 mg/dL (70-99)
[2017-12-05 11:13] LABS: TROP-I INTERPRETATION NEGATIVE; TROPONIN-I 0.06 ng/mL (0.0-0.30)
[2017-12-05 18:16] LABS: TROP-I INTERPRETATION NEGATIVE; TROPONIN-I 0.06 ng/mL (0.0-0.30)
[2017-12-05 23:24] LABS: APPEARANCE CLEAR ((CLEAR)); BILIRUBIN NEGATIVE; BLOOD LARGE; COLOR YELLOW ((YELLOW)); GLUCOSE (STRIP) NEGATIVE; KETONES NEGATIVE; LEUKOCYTES TRACE; NITRITE NEGATIVE; PROTEIN (STRIP) NEGATIVE; UROBILINOGEN 0.2 MG/DL (0.2-1.0)
[2017-12-05 23:28] LABS: BACTERIA RARE /HPF; EPITHELIAL CELLS 1+ /HPF; HYALINE CASTS 0-5 /LPF; MUCUS TRACE /LPF; RED BLOOD CELLS TNTC /HPF (0-5); UCUL ADDED? YES; WHITE BLOOD CELLS 15-20 /HPF (0-5)
[2017-12-06 04:34] VITALS: BP 118/69
[2017-12-06 05:32] LABS: BASOPHIL (%) 0.7 % (0-1); BASOPHIL COUNT 0.1 K/uL (0-0.1); EOSINOPHIL COUNT 0.1 K/uL (0-0.3); HEMATOCRIT 28.8 % (38.0-50.0); HEMOGLOBIN 8.4 G/DL (12.5-16.6); IMMATURE GRANULOCYTE (%) 0.4 % (0.0-0.7); LYMPHOCYTE (%) 10.1 % (15-42); LYMPHOCYTE COUNT 0.7 K/uL (1.0-2.8); MCH 24.7 PG (29.0-34.0); MCHC 29.2 G/DL (30.0-36.0); MCV 84.7 FL (86-99); MONOCYTE (%) 6.8 % (3-12); MONOCYTE COUNT 0.5 K/uL (0-0.8); NEUTROPHIL COUNT 5.6 K/uL (1.8-6.4); RBC DIS.WIDTH-CV 18.6 % (11.8-14.6); RBC DIS.WIDTH-SD 55.8 % (39-53)
[2017-12-06 05:38] LABS: INTER. NORMALIZED RATIO 2.1
[2017-12-06 05:44] LABS: PLATELET COUNT 100 K/uL (156-360)
[2017-12-06 06:08] LABS: ALBUMIN 2.9 G/DL (3.2-4.8); ALKALINE PHOSPHATASE 98 IU/L (3-129); ALT (GPT) 10 IU/L (3-49); AST (GOT) 17 IU/L (2-34); CHLORIDE 107 MEQ/L (99-109); CREATININE 1.2 MG/DL (0.6-1.3); GFR ESTIMATE (CALCULATED) > 59 mL/min/ (58.99-99999); POTASSIUM 3.4 MEQ/L (3.7-5.4); SODIUM 146 MEQ/L (136-147); TOTAL BILIRUBIN 0.9 MG/DL (0.0-1.0); TOTAL PROTEIN 4.3 G/DL (6.4-8.3); UREA NITROGEN (BUN) 19 mg/dL (9-23)
[2017-12-06 06:15] LABS: GLUCOSE 81 mg/dL (70-99)
[2017-12-06 07:22] VITALS: BP 144/63
[2017-12-06 11:46] VITALS: BP 133/62
[2017-12-06 15:51] VITALS: BP 131/60
[2017-12-06 19:37] VITALS: BP 142/65
[2017-12-06 23:28] VITALS: BP 134/60
[2017-12-07 03:13] VITALS: BP 134/60
[2017-12-07 06:05] LABS: HEMOGLOBIN 9.4 G/DL (12.5-16.6); MCH 25.1 PG (29.0-34.0); MCHC 29.4 G/DL (30.0-36.0); MCV 85.3 FL (86-99); PLATELET COUNT 120 K/uL (156-360); RBC DIS.WIDTH-CV 18.6 % (11.8-14.6); RBC DIS.WIDTH-SD 55.5 % (39-53); RED BLOOD COUNT 3.75 M/uL (4.00-5.50); WHITE BLOOD COUNT 8.2 K/uL (4.1-10.2)
[2017-12-07 06:25] LABS: CHLORIDE 108 MEQ/L (99-109); CREATININE 1.2 MG/DL (0.6-1.3); GFR ESTIMATE (CALCULATED) > 59 mL/min/ (58.99-99999); POTASSIUM 3.6 MEQ/L (3.7-5.4); SODIUM 146 MEQ/L (136-147); UREA NITROGEN (BUN) 16 mg/dL (9-23)
[2017-12-07 06:31] LABS: GLUCOSE 106 mg/dL (70-99)
[2017-12-07 07:27] VITALS: BP 144/68
[2017-12-07 13:29] VITALS: BP 136/68
[2017-12-07 20:00] VITALS: BP 132/64
[2017-12-07 23:56] VITALS: BP 135/76
[2017-12-08 04:00] VITALS: BP 126/58
[2017-12-08 09:48] VITALS: BP 146/67
[2017-12-08 12:00] VITALS: BP 145/64
[2017-12-08 16:12] VITALS: BP 139/63
[2017-12-08 19:18] VITALS: BP 136/62
[2017-12-08 23:53] VITALS: BP 132/61
[2017-12-09 04:37] VITALS: BP 162/67
[2017-12-09 05:40] LABS: HEMATOCRIT 30.5 % (38.0-50.0); HEMOGLOBIN 8.9 G/DL (12.5-16.6); MCH 24.7 PG (29.0-34.0); MCHC 29.2 G/DL (30.0-36.0); MCV 84.5 FL (86-99); PLATELET COUNT 114 K/uL (156-360); RBC DIS.WIDTH-CV 18.4 % (11.8-14.6); RBC DIS.WIDTH-SD 55.8 % (39-53); RED BLOOD COUNT 3.61 M/uL (4.00-5.50)
[2017-12-09 06:02] LABS: CHLORIDE 106 MEQ/L (99-109); CREATININE 1.3 MG/DL (0.6-1.3); GFR ESTIMATE (CALCULATED) 57 mL/min/ (58.99-99999); GLUCOSE 127 mg/dL (70-99); POTASSIUM 4.2 MEQ/L (3.7-5.4); SODIUM 144 MEQ/L (136-147); UREA NITROGEN (BUN) 22 mg/dL (9-23)
[2017-12-09 08:32] VITALS: BP 135/67
[2017-12-09 11:38] VITALS: BP 126/62
[2017-12-09] MEDS ORDERED: AUGMENTIN875 MG PO (12:31)
[2017-12-09] MEDS ORDERED: PREDNISONE10 MG PO (12:32)
[2017-12-09] MEDS ORDERED: FLORASTOR250 MG PO (12:32)
== END 2017-12-09 15:05 | DRG 871 ==
LOC: EME → EDBD 20:57 → 4EAST 23:42 → EDOF 23:42 → ENRESERV 23:56 → 4EAST 12-05 01:46
PROVIDERS: Emergency Medicine; Family Medicine; Hospitalist; Internal Medicine; Physician Assistant Medical
DX: A41.9 Sepsis, unspecified organism (principal); J44.0 Chronic obstructive pulmonary disease with (acute) lower respiratory infection; J18.9 Pneumonia, unspecified organism; J96.21 Acute and chronic respiratory failure with hypoxia; J44.1 Chronic obstructive pulmonary disease with (acute) exacerbation; R04.2 Hemoptysis; I13.0 Hypertensive heart and chronic kidney disease with heart failure and stage 1 through stage 4 chronic kidney disease, or unspecified chronic kidney disease; I50.23 Acute on chronic systolic (congestive) heart failure; N18.3 Chronic kidney disease, stage 3 (moderate); D50.0 Iron deficiency anemia secondary to blood loss (chronic); R79.1 Abnormal coagulation profile; T45.515A Adverse effect of anticoagulants, initial encounter; E87.4 Mixed disorder of acid-base balance; I47.2 Ventricular tachycardia; R73.9 Hyperglycemia, unspecified; D69.6 Thrombocytopenia, unspecified; E78.5 Hyperlipidemia, unspecified; I25.10 Atherosclerotic heart disease of native coronary artery without angina pectoris; I25.5 Ischemic cardiomyopathy; I35.0 Nonrheumatic aortic (valve) stenosis; I44.7 Left bundle-branch block, unspecified; I48.2 Chronic atrial fibrillation; K21.9 Gastro-esophageal reflux disease without esophagitis; F10.11 Alcohol abuse, in remission; M10.9 Gout, unspecified; E66.9 Obesity, unspecified; Z85.828 Personal history of other malignant neoplasm of skin; I25.2 Old myocardial infarction; Z68.33 Body mass index [BMI] 33.0-33.9, adult; Z79.01 Long term (current) use of anticoagulants; Z87.891 Personal history of nicotine dependence; Z95.1 Presence of aortocoronary bypass graft; Z95.3 Presence of xenogenic heart valve; Z95.5 Presence of coronary angioplasty implant and graft; Z99.81 Dependence on supplemental oxygen; Z79.82 Long term (current) use of aspirin; Z79.02 Long term (current) use of antithrombotics/antiplatelets
CPT/HCPCS: 36600; 71045; 71046; 71250; 78580; 80048; 80053; 81003; 82803; 82948; 83036; 83605; 83735; 83880; 84484; 85025; 85027; 85610; 85730; 87040; 87070; 87086; 87205; 87449; 87641; 93005; 94640; 94640 76; 94799; 97530 GP; 99202; 99281; 99285; A6214; A9540; J0282; J1815; J1940; J2543; J3370; J7050; J7512